=== PATIENT | male | born 1955 | race Caucasian/White ===

== ENCOUNTER 2024-07-04 13:13 | Inpatient (IN) | payer OTHER ==
[2024-07-04] VITALS (8 sets, daily range): BP systolic 119–149; BP diastolic 76–96
[~2024-07-04] VITALS: Ht 177.8 cm; Wt 104.3 kg
[2024-07-04] MEDS ORDERED: SODIUM CHLORIDE 0.9% 1,000 ML IV ONE ×2 (13:25→16:40)
[2024-07-04] MEDS ORDERED: Ondansetron Hydrochloride 4 MG/2 ML VIAL IV ONE (13:25)
[2024-07-04] MEDS ORDERED: IRON325 M1 PO (13:27)
[2024-07-04 13:36] LABS: ABG BASE EXCESS -1.8 mmol/L (-2.0-2.0); ARTERIAL BLOOD GAS PH 7.398 (7.35-7.45)
[2024-07-04 13:45] LABS: BASO # 0.1 10*3/uL (0.0-0.1); BASO % 0.4 % (0.0-1.0); EOS % 0.3 % (1.0-4.0); HEMATOCRIT 45.6 % (42.0-52.0); LYMPH # 1.6 10*3/uL (1.3-4.4); LYMPH % 13.6 % (27.0-41.0); MEAN CELL VOLUME 89.9 fl (80.0-94.0); MEAN CORPUSCULAR HGB 29.6 pg (27.0-31.0); MEAN CORPUSCULAR HGB CONC 32.9 g/dl (33.0-37.0); NEUT # 9.1 10*3/uL (2.3-7.9); NEUT % 76.9 % (47.0-73.0); PLATELET COUNT AUTOMATED 226 10*3/uL (130-400); RED BLOOD COUNT 5.07 10*6/uL (4.50-5.90); RED CELL DISTRI WIDTH 13.6 % (0-14.5); WHITE BLOOD COUNT 11.9 10*3/uL (4.8-10.8)
[2024-07-04 13:59] LABS: BUN 12 mg/dl (9-23); CHLORIDE 103 mmol/L (98-107); LIPASE 68 U/L (12-53); POTASSIUM 3.5 mmol/L (3.4-5.1)
[2024-07-04 14:05] LABS: ETHYL ALCOHOL < 3.0 mg/dl (<3)
[2024-07-04] MEDS ORDERED: BISACODYL 5 MG TAB PO PRN (16:25)
[2024-07-04] MEDS ORDERED: BISACODYL 10 MG SUPP R PRN (16:25)
[2024-07-04] MEDS ORDERED: Magnesium Hydroxide 30 ML UDC PO PRN (16:25)
[2024-07-04] MEDS ORDERED: ACETAMINOPHEN 325 MG TAB PO PRN (16:25)
[2024-07-04] MEDS ORDERED: ACETAMINOPHEN 650 MG SUPP R PRN (16:25)
[2024-07-04 17:23] LABS: BILIRUBIN Negative (Negative); BLOOD Negative (Negative); CLARITY Clear (Clear); COLOR Yellow (Yellow); GLUCOSE Negative (Negative); KETONE Negative (Negative); LEUKO ESTERASE Negative (Negative); NITRITE Negative (Negative); PH 7.5 (4.5-8.0); SPECIFIC GRAVITY 1.015 (1.001-1.030); UROBILINOGEN 0.2 E.U./dl (0.0-1.0)
[2024-07-04 17:30] LABS: URINE AMPHETAMINES Negative (1000ng/ml); URINE BARBITURATES Negative (200ng/ml); URINE BENZODIAZEPINES Negative (200ng/ml); URINE CANNABINOIDS (THC) Negative (50ng/ml); URINE COCAINE Negative (300ng/ml); URINE METHADONE Negative (300ng/ml); URINE OPIATES Negative (300ng/ml); URINE PHENCYCLIDINE Negative (25ng/ml)
[2024-07-04 17:43] LABS: EPITHELIAL CELLS 0-2; WBC 0-2 wbc/hpf (0-5)
[2024-07-04] MEDS ORDERED: Ondansetron Hydrochloride 4 MG TAB PO PRN (18:00)
[2024-07-05] MEDS ORDERED: SODIUM CHLORIDE 0.9% 1,000 ML IV ONE (01:00)
[2024-07-05 06:31] VITALS: BP 149/95
[2024-07-05 06:58] LABS: BASO % 0.5 % (0.0-1.0); EOS % 0.1 % (1.0-4.0); HEMATOCRIT 46.1 % (42.0-52.0); LYMPH # 1.2 10*3/uL (1.3-4.4); LYMPH % 14.2 % (27.0-41.0); MEAN CELL VOLUME 89.5 fl (80.0-94.0); MEAN CORPUSCULAR HGB 30.1 pg (27.0-31.0); MEAN CORPUSCULAR HGB CONC 33.6 g/dl (33.0-37.0); MEAN PLATELET VOLUME 9.3 fl (9.6-12.3); MONO % 11.9 % (3.0-9.0); NEUT # 6.1 10*3/uL (2.3-7.9); NEUT % 72.8 % (47.0-73.0); PLATELET COUNT AUTOMATED 228 10*3/uL (130-400); RED BLOOD COUNT 5.15 10*6/uL (4.50-5.90); RED CELL DISTRI WIDTH 13.9 % (0-14.5); WHITE BLOOD COUNT 8.4 10*3/uL (4.8-10.8)
[2024-07-05 07:38] LABS: ALKALINE PHOSPHATASE 80 U/L (46-116); BUN 9 mg/dl (9-23); CHLORIDE 108 mmol/L (98-107); CHOLESTEROL 200 mg/dL (<200); FREE T4 0.94 ng/dl (0.89-1.76); LDL CHOLESTEROL 120 mg/dL (9-159); POTASSIUM 3.9 mmol/L (3.4-5.1); SGPT/ALT 13 U/L (5-49); TOTAL PROTEIN 6.3 gm/dL (6.0-8.0); TRIGLYCERIDES 194 mg/dl (<150)
[2024-07-05 07:55] LABS: VITAMIN D, 25-HYDROXY 23.9 ng/mL (30-100)
[2024-07-05 08:00] VITALS: BP 149/103
[2024-07-05] MEDS ORDERED: Enoxaparin Sodium 40 MG/0.4 ML SYR SC SCH (10:00)
[2024-07-05] MEDS ORDERED: Vitamin D 1,000 IU TAB (25 MCG) PO SCH (10:00)
[2024-07-05] MEDS ORDERED: FERROUS SULFATE 325 MG TAB PO SCH (10:00)
[2024-07-05] MEDS ORDERED: VITAMIN D350 MC2 PO (11:37)
[2024-07-05] MEDS ORDERED: IRON325 M1 PO (11:37)
== END 2024-07-05 17:32 | disposition home or self-care (01) | DRG 73 ==
LOC: ED → EDHOLD 15:33
PROVIDERS: Emergency Medicine; Student in an Organized Health Care Education/Training Program; ADMIT Internal Medicine; ATTEND Internal Medicine
DX: G90.8 Other disorders of autonomic nervous system (principal); J96.01 Acute respiratory failure with hypoxia; E87.1 Hypo-osmolality and hyponatremia; E87.20 Acidosis, unspecified; Z68.1 Body mass index [BMI] 19.9 or less, adult; E86.0 Dehydration; E66.9 Obesity, unspecified; R73.9 Hyperglycemia, unspecified; D64.9 Anemia, unspecified; D72.9 Disorder of white blood cells, unspecified; Z80.0 Family history of malignant neoplasm of digestive organs

== ENCOUNTER 2025-09-17 13:09 | Emergency (ER) | payer MEDICARE ==
[~2025-09-17] VITALS: Ht 373.3 cm; Wt 72.6 kg
[~2025-09-17 13:09] MED LIST: IRON325 M1 PO; VITAMIN D350 MC2 PO
[2025-09-17] MEDS ORDERED: Tdap Vaccine 0.5 ML SYR (Adult Vaccine) IM ONE (13:25)
[2025-09-17] MEDS ORDERED: Ampicillin Sodium/Sulbactam 3 GM in SODIUM CHLORIDE 0.9% 100 ML IV ONE (13:30)
[2025-09-17] MEDS ORDERED: CEPHALEXIN500 M1 PO (15:41)
[2025-09-17] MEDS ORDERED: SODIUM CHLORIDE 0.9% 500 ML IV ONE (18:13)
== END 2025-09-17 16:22 | disposition home or self-care (01) ==
LOC: ED 13:09
DX: S61.512A Laceration without foreign body of left wrist, initial encounter (principal); E78.00 Pure hypercholesterolemia, unspecified; W26.0XXA Contact with knife, initial encounter; Y93.89 Activity, other specified; Y92.89 Other specified places as the place of occurrence of the external cause; Y99.8 Other external cause status

== ENCOUNTER → 2025-09-21 | Outpatient (CLI) | payer MEDICARE ==
[~2025-09-21] MED LIST changes: +CEPHALEXIN500 M1 PO
== END | disposition home or self-care (01) ==
LOC: WOUNDCARE 00:59
PROVIDERS: ATTEND Nurse Practitioner Family
DX: S61.512A Laceration without foreign body of left wrist, initial encounter (principal); Z79.899 Other long term (current) drug therapy; X58.XXXA Exposure to other specified factors, initial encounter; Y93.89 Activity, other specified; Y92.89 Other specified places as the place of occurrence of the external cause; Y99.8 Other external cause status

== ENCOUNTER → 2025-10-01 | Outpatient (CLI) | payer MEDICARE | END | disposition home or self-care (01) | LOC: WOUNDCARE 09-30 06:35 | PROVIDERS: ATTEND Nurse Practitioner Family | DX: S61.512D Laceration without foreign body of left wrist, subsequent encounter (principal); X58.XXXD Exposure to other specified factors, subsequent encounter ==